=== PATIENT | female | born 1955 | race Caucasian/White ===

== ENCOUNTER 2017-01-28 19:51 | Emergency (ER) | payer OTHER | END 2017-01-28 22:10 | disposition home or self-care (01) | LOC: ER 19:51 | DX: S30.0XXA Contusion of lower back and pelvis, initial encounter (principal); W01.10XA Fall on same level from slipping, tripping and stumbling with subsequent striking against unspecified object, initial encounter; I10 Essential (primary) hypertension; Z90.710 Acquired absence of both cervix and uterus; F29 Unspecified psychosis not due to a substance or known physiological condition; Z79.899 Other long term (current) drug therapy; F17.210 Nicotine dependence, cigarettes, uncomplicated | CPT/HCPCS: 72220; 99283 ==

== ENCOUNTER 2017-02-03 15:21 | Emergency (ER) | payer OTHER | END 2017-02-04 00:10 | disposition home or self-care (01) | LOC: ER 15:21 | DX: S30.0XXA Contusion of lower back and pelvis, initial encounter (principal); W01.190S Fall on same level from slipping, tripping and stumbling with subsequent striking against furniture, sequela; Y92.019 Unspecified place in single-family (private) house as the place of occurrence of the external cause; I10 Essential (primary) hypertension; F99 Mental disorder, not otherwise specified; Z90.710 Acquired absence of both cervix and uterus; F17.210 Nicotine dependence, cigarettes, uncomplicated | CPT/HCPCS: 99282 ==